=== PATIENT | male | born 1995 | race Caucasian/White ===

== ENCOUNTER 2023-03-18 08:59 | Emergency (ER) | payer OTHER, SELFPAY ==
--- NOTE | ~2023-03-18 | CT_ITS ---
EXAMINATION: CT brain wo con DATE: 03/18/2023 09:56 INDICATION: Headache. Head pressure for months. Memory loss. TECHNIQUE: Computed tomography (CT) of the head was performed without intravenous contrast. The mA wa s adjusted according to patient size. Iterative reconstruction technique was employed. Exam dose: 60 5.33 mGy-cm total exam DLP. COMPARISON: None FINDINGS: Normal ventricular size. Normal mccord-white matter differentiation. No intracranial mass les ion or hemorrhage or cerebrovascular accident or encephalomalacia. No midline shift or mass effect. No subdural or epidural hematoma. The orbits appear normal. The mastoid air cells and included paranasal sinuses are normally developed and aerated. No fracture or bone destruction of the cranial vault. IMPRESSION: Negative Reviewed, dictated and finalized at [facility]. Reviewed, dictated and finalized at [facility]. NCE ADVISOR IMPRESSION: Negative
[2023-03-18 09:10] VITALS: BP 161/90; PULSE 88; RESP 20; TEMP 36.5; O2SAT 100
--- NOTE | 2023-03-18 09:45 | ED.GENADULT ---
HPI - General Adult General Chief complaint: Headache Stated complaint: HEAD PRESSURE MEMORY LOSS Time Seen by Provider: 03/18/23 09:14 History of Present Illness HPI narrative: 28-year-old male presenting the emergency department for evaluation for short-term memory loss and increased head pressure. Patient states the symptoms have been going on for a number of weeks. Patient [place] and states he was unable to leave to have follow-up with his physician. Patient did not have a primary care physician. Patient does report some short-term memory loss such as forgetting where you would put his phone and patient does report some increased headache. Patient denies any associated numbness or weakness. Patient denies any falls or injuries. Patient denies any associated nausea vomiting diarrhea. Patient denies any history depression or PTSD. Related Data Allergies Allergy/AdvReac Type Severity Reaction Status Date / Time No Known Allergies Allergy Unverified 09/16/11 05:57 Review of Systems Review of Systems: All systems reviewed & are unremarkable except as noted in HPI and below Exam Narrative: APPEARANCE: Well appearing, no pain, no distress, well-nourished. HEAD: normocephalic, atraumatic. EYES: PERRLA/EOMI, conjunctivae clear. NOSE: Normal no drainage NECK: Supple. No adenopathy, no masses. RESPIRATORY: Airway patent, respirations nonlabored. Clear to auscultation bilaterally, no rales, rhonchi, wheezing. CARDIOVASCULAR: Regular rate and rhythm without murmurs rubs or gallops. ABDOMINAL: Soft, nontender, nondistended, normal bowel sounds MUSCULOSKELETAL: Moves all extremities. Strength/ROM intact, No edema, No calf tenderness. NEURO: Alert. Cranial nerves II through XII intact. Good gait. Good coordination SKIN: Warm, dry. Normal Color Course Course Emergency Course: [age] year male presenting to the emergency department for evaluation of short-term memory issues. Patient had a negative head CT. Patient is afebrile with no leukocytosis and a stable hemoglobin. Patient had no abnormalities on his CMP. Patient's thyroid was normal patient's Burns in B12 over within normal limits no evidence of a urinary tract infection patient's RPR was negative and patient was negative for influenza RSV and for COVID. Patient and family were updated on the results of the workup and patient was encouraged to have close follow-up with Neurology for additional outpatient workup including an outpatient MRI. Vital Signs Vital signs: Vital Signs Temperature 97.7 F 03/18/23 09:10 Pulse Rate 88 03/18/23 09:10 Respiratory Rate 20 03/18/23 09:10 Blood Pressure 161/90 H 03/18/23 09:10 Pulse Oximetry 100 03/18/23 09:10 Temperature 97.9 F 03/18/23 13:50 Pulse Rate 65 03/18/23 13:50 Respiratory Rate 17 03/18/23 13:50 Blood Pressure 130/76 03/18/23 13:50 Pulse Oximetry 100 03/18/23 13:50 Medical Decision Making Differential Diagnosis Differential Diagnosis: Intracranial abnormality, vitamin deficiency, tertiary syphilis, neuro degenerative disease Vital Signs Vital Signs: Vital Signs Temperature 97.7 F 03/18/23 09:10 Pulse Rate 88 03/18/23 09:10 Respiratory Rate 20 03/18/23 09:10 Blood Pressure 161/90 H 03/18/23 09:10 Pulse Oximetry 100 03/18/23 09:10 Temperature 97.9 F 03/18/23 13:50 Pulse Rate 65 03/18/23 13:50 Respiratory Rate 17 03/18/23 13:50 Blood Pressure 130/76 03/18/23 13:50 Pulse Oximetry 100 03/18/23 13:50 Lab Data Lab results reviewed: Yes I reviewed the patient's lab results. 03/18/23 10:28 03/18/23 10:27 Labs: Lab Results 03/18/23 03/18/23 03/18/23 Range/Units 09:21 10:27 10:28 WBC 6.2 (4.5-10.0) K/mm3 RBC 4.63 (4.6-6.20) M/mm3 Hgb 13.8 L (14.0-18.0) g/dL Hct 41.0 L (42.0-52.0) % MCV 88.6 (80-100) fl MCH 29.8 (26-34) pg MCHC 33.7
[2023-03-18 10:02] LABS: Influenza A QL RT-PCR Negative (Negative); Influenza B QL RT-PCR Negative (Negative); RSV RNA, RT-PCR Negative (Negative); SARS-CoV-2 RNA PCR Negative (Negative)
[2023-03-18 10:35] LABS: Basophils Percent Auto 0.2 % (0.2-1.2); Eosinophils Percent Auto 0.2 % (0-4.4); Hemoglobin 13.8 g/dL (14.0-18.0); Immature Granulocyte Absolute 0.02 K/mm3 (0.00-0.031); Immature Granulocyte Percent A 0.3 % (0-0.5); Lymphocytes Absolute Auto 1.01 K/mm3 (0.9-3.2); Lymphocytes Percent Auto 16.4 % (18.3-44.2); Mean Corpuscular HGB Conc 33.7 g/dl (32-36); Mean Corpuscular Hemoglobin 29.8 pg (26-34); Mean Corpuscular Volume 88.6 fl (80-100); Mean Platelet Volume 9.1 fl (7.4-10.4); Monocytes Absolute Auto 0.5 K/mm3 (0.1-0.6); Monocytes Percent Auto 7.8 % (2.6-8.5); Neutrophils Absolute Auto 4.6 K/mm3 (1.3-6.7); Neutrophils Percent Auto 75.1 % (45.5-73.1); Platelet Count Result 248 k/mm3 (150-375); Red Blood Count 4.63 M/mm3 (4.6-6.20); Red Cell Distribution Width 12.3 % (11.5-14.5); White Blood Count 6.2 K/mm3 (4.5-10.0)
[2023-03-18 10:44] LABS: Alanine Aminotransferase 19 U/L (6-50); Albumin Level 4.4 g/dL (3.5-5.1); Alkaline Phosphatase 78 U/L (38-126); Anion Gap 9 mmol/L (8-16); Aspartate Amino Transferase 22 U/L (17-59); Bilirubin,Total 1.7 mg/dL (0.2-1.3); Blood Urea Nitrogen 11 mg/dL (9-20); Calcium 9.6 mg/dL (8.4-10.2); Carbon Dioxide 25 mmol/L (22-30); Chloride 104 mmol/L (98-107); Estimated CRCL calculation 121 ml/min; Estimated Glomerular Filt Rate > 60; Glucose 112 mg/dL (65-110); Magnesium 1.9 mg/dL (1.6-2.3); Potassium 3.6 mmol/L (3.4-5.0); Sodium 138 mmol/L (137-145)
[2023-03-18 11:28] LABS: Appearance Urine Clear (Clear); Bilirubin Urine Negative (Negative); Blood Urine Negative (Negative); Color Urine Yellow (Yellow); Glucose Urine UA Negative (Negative); Ketones Urine Negative (Negative); Leukocyte Esterase Ur Negative LEU/UL (Negative); Nitrate Urine Negative (Negative); Protein Urine Negative (Negative); Specific Grav Ur 1.003 (1.001-1.035); Urobilinogen Urine 0.2 mg/dL (<2.0)
[2023-03-18 11:31] LABS: Add Urine Microscopic? NO
[2023-03-18 11:52] LABS: Folic Acid 8.3 ng/mL (2.76->20)
[2023-03-18 11:58] VITALS: BP 130/84; PULSE 81; RESP 20; O2SAT 98
[2023-03-18 13:42] LABS: Rapid Plasma Reagin Non-Reactive (NonReactive)
[2023-03-18 13:50] VITALS: BP 130/76; PULSE 65; RESP 17; TEMP 36.6; O2SAT 100
== END 2023-03-18 13:53 | disposition home or self-care (01) ==
PROVIDERS: Emergency Provider Emergency Medicine
DX: R51.9 Headache, unspecified (principal); R41.3 Other amnesia; Z20.822 Contact with and (suspected) exposure to COVID-19
CPT/HCPCS: 36415; 70450; 80053; 81003; 82607; 82746; 83735; 84443; 85025; 86592; 87637; 99284